=== PATIENT | female | born 1955 | race Caucasian/White ===

== ENCOUNTER 2022-07-07 07:52 | Outpatient (CLI) | payer OTHER | END 2022-07-07 23:59 | disposition EMS.NT | LOC: EMS 07:52 | DX: F11.90 Opioid use, unspecified, uncomplicated (principal) ==

== ENCOUNTER 2023-10-04 16:14 | Outpatient (CLI) | payer MEDICARE, MEDICAID | END 2023-10-04 16:15 | disposition short-term general hospital (02) | LOC: EMS 16:14 | DX: R53.1 Weakness (principal); R41.82 Altered mental status, unspecified | CPT/HCPCS: A0425; A0429 ==